=== PATIENT | female | born 1940 | race Caucasian/White ===

== ENCOUNTER → 2020-07-21 | Outpatient (CLI) | payer MEDICARE ==
[~2020-07-21] MED LIST: ATELVIA35 MG PO; CALCIUM 600 +1 EAC3 PO; COMBIVENT INHALE4 GM INH; IPRAT-ALBUT 0.5-3 ML INH; LEVAQUIN750 MG PO; LIPITOR TAB 2020 MG PO; NORVASC 5 MG TAB5 MG PO; TESSALON PERLE100 MG PO; TOPROL XL 100100 MG PO
== END ==
LOC: HEART 5 06-20 10:00
DX: R60.9 Edema, unspecified (principal); I11.9 Hypertensive heart disease without heart failure; I27.20 Pulmonary hypertension, unspecified; I08.1 Rheumatic disorders of both mitral and tricuspid valves
CPT/HCPCS: 93306